=== PATIENT | male | born 1995 | race Caucasian/White ===

== ENCOUNTER 2019-08-14 13:46 | Inpatient (IN) | payer OTHER ==
[~2019-08-14] VITALS: Ht 170.2 cm; Wt 69.9 kg
[2019-08-14] MEDS ORDERED: MORPHINE SULFATE 4 MG/ML CPJ (NOT FOR IM USE) IV STA (14:32)
[2019-08-14] MEDS ORDERED: ONDANSETRON HCL 4MG/2ML INJ IV STA (14:32)
[2019-08-14] MEDS ORDERED: SODIUM CHLORIDE 0.9% 1000ML BAG (SEPSIS BOLUS) IV ONE (14:45)
[2019-08-14] MEDS ORDERED: PIPERACILLIN/TAZ 3.375G PREMIX 50 ML IV ONE (14:45)
[2019-08-14 16:04] LABS: CHLORIDE 105 mEq/L (98-107); PROTHROMBIN TIME 11.3 sec (9.6-11.0)
[2019-08-14 16:09] LABS: BASOPHILS % 0.8 % (0.0-2.0); C REACTIVE PROTEIN QUANT 2.5 mg/L (0.0-3.0); EOSINOPHILS % 1.6 % (0.0-5.0); HEMATOCRIT. 40.5 % (42.0-52.0); HEMOGLOBIN. 14.2 g/dL (14.0-18.0); LYMPHOCYTES % 21.9 % (20.0-50.0); MEAN CORPUSCULAR HEMOGLOBIN 30.1 pg (28.0-32.0); MEAN PLATELET VOLUME 7.5 fl (7.4-10.4); MONOCYTES % 6.7 % (2.0-8.0); PLATELET 245 x1000/uL (130-400); RED BLOOD CELL COUNT 4.72 mill/uL (4.7-6.1); RED CELL DISTRIBUTION WIDTH 13.5 % (11.6-14.6)
[2019-08-14] MEDS ORDERED: ONDANSETRON HCL 4MG/2ML INJ IV PRN (18:45)
[2019-08-14] MEDS ORDERED: ZOLPIDEM TARTRATE 5MG TABLET PO PRN (18:45)
[2019-08-14] MEDS ORDERED: ACETAMINOPHEN 325MG TABLET PO PRN (18:45)
[2019-08-14 20:00] VITALS: BP 128/54
[2019-08-15] VITALS: BP 112/40
[2019-08-15 04:00] VITALS: BP 121/73
[2019-08-15 04:43] LABS: CLARITY URINE CLEAR (CLEAR); COLOR URINE YELLOW (YELLOW); KETONES URINE NEGATIVE (NEGATIVE); LEUKOCYTE ESTERASE URINE NEGATIVE (NEGATIVE); NITRITE URINE NEGATIVE (NEGATIVE); OCCULT BLOOD URINE NEGATIVE (NEGATIVE); PROTEIN URINE NEGATIVE (NEGATIVE); SPECIFIC GRAVITY URINE 1.011 (1.005-1.030); UROBILINOGEN URINE 0.2 E.U./dL (0.2-1.0)
[2019-08-15 05:09] LABS: *AMPHETAMINES SCREEN URINE NEGATIVE (NEGATIVE); *BARBITURATES SCREEN URINE NEGATIVE (NEGATIVE); *BENZODIAZEPINES SCREEN URINE NEGATIVE (NEGATIVE); *COCAINE SCREEN URINE NEGATIVE (NEGATIVE); METHADONE URINE SCREEN NEGATIVE (NEGATIVE); OPIATES URINE SCREEN PRESUMTIVE POSITIVE (NEGATIVE); PHENCYCLIDINE URINE SCREEN NEGATIVE (NEGATIVE)
[2019-08-15 05:10] LABS: CANNABINOID URINE SCREEN NEGATIVE (NEGATIVE)
[2019-08-15 08:00] VITALS: BP 127/78
[2019-08-15] MEDS: DOCUSATE SODIUM 100MG CAPSULE PO SCH (08:22)
[2019-08-15] MEDS ORDERED: LIDOCAINE HCL 1% 20ML VIAL (Pyxis) INJ ONE (08:52)
[2019-08-15] MEDS ORDERED: SODIUM BICARBONATE 4% (2.4MEQ) 5ML VIAL IV ONE (08:52)
[2019-08-15 12:00] VITALS: BP 122/81
[2019-08-15 16:00] VITALS: BP 129/84
[2019-08-15 20:00] VITALS: BP 115/53
[2019-08-15] MEDS: CHLORHEXIDINE GLUCONATE 4% EXTERNAL USE TOP SCH (20:58)
[2019-08-16] VITALS: BP 114/50
[2019-08-16 04:00] VITALS: BP 152/80
[2019-08-16] MEDS: CHLORHEXIDINE GLUCONATE 4% EXTERNAL USE TOP SCH (05:03)
[2019-08-16] MEDS: DOCUSATE SODIUM 100MG CAPSULE PO SCH ×2 (09:05→16:40)
[2019-08-16] MEDS ORDERED: EPINEPHRINE 1:1000 1 MG/ML AMP ONE (10:43)
[2019-08-16] MEDS ORDERED: MORPHINE SULFATE/PF 1MG/ML 10ML AMP ONE (10:43)
[2019-08-16] MEDS ORDERED: BUPIVACAINE/EPINEPH/PF 0.25%/0.0005 10ML ONE ×2 (10:44→13:45)
[2019-08-16] MEDS ORDERED: BACITRACIN 50,000 UNITS/VIAL ONE (10:44)
[2019-08-16] MEDS ORDERED: NEOSTIGMINE METHYLSULFATE 1MG/ML 10 ML VIAL ONE (12:36)
[2019-08-16] MEDS ORDERED: FENTANYL CITRATE/PF 50MCG/ML 2ML VIAL ONE (12:36)
[2019-08-16] MEDS ORDERED: ROCURONIUM BROMIDE 10MG/ML VIAL 5ML IV ONE (12:36)
[2019-08-16] MEDS ORDERED: GLYCOPYRROLATE 0.2 MG/ML 2ML VIAL ONE (12:37)
[2019-08-16] MEDS ORDERED: MIDAZOLAM HCL 2 MG/2 ML VIAL ONE (12:37)
[2019-08-16] MEDS ORDERED: PROPOFOL 200MG/20ML VIAL IV ONE (12:37)
[2019-08-16] MEDS ORDERED: MORPHINE SULFATE 2 MG/ML CPJ (NOT FOR IM USE) IV PRN (12:45)
[2019-08-16] MEDS ORDERED: ACETAMINOPHEN 325MG TABLET PO PRN (12:45)
[2019-08-16] MEDS ORDERED: MAGNESIUM HYDROXIDE 400MG/5ML 30ML UDC PO PRN (12:45)
[2019-08-16] MEDS ORDERED: MORPHINE SULFATE 4 MG/ML CPJ (NOT FOR IM USE) IV PRN (12:45)
[2019-08-16] MEDS ORDERED: HYDROCODONE/ACETAMINOPHEN 10/325MG TABLET PO PRN ×2 (12:45)
[2019-08-16] MEDS ORDERED: DEXAMETHASONE 4MG/ML 1ML VIAL ONE (12:48)
[2019-08-16] MEDS ORDERED: ONDANSETRON HCL 4MG/2ML INJ ONE (12:53)
[2019-08-16] MEDS ORDERED: ONDANSETRON HCL 4MG/2ML INJ IV PRN (13:30)
[2019-08-16] MEDS ORDERED: LABETALOL 5MG/ML SYR 20 MG/4 ML SYRINGE IV PRN (13:30)
[2019-08-16] MEDS ORDERED: MEPERIDINE HCL/PF 25MG/ML CPJ IV PRN (13:30)
[2019-08-16] MEDS ORDERED: HYDROMORPHONE HCL/PF 2MG/ML CPJ IV PRN (13:30)
[2019-08-16 16:00] VITALS: BP 139/71
[2019-08-16] MEDS: CELECOXIB 200MG CAPSULE PO SCH (16:40)
[2019-08-16] MEDS: CEFAZOLIN 2,000 MG in DEXT 5% WATER 100 ML IV SCH (16:40)
[2019-08-16 20:00] VITALS: BP 114/65
[2019-08-16] MEDS ORDERED: ZOLPIDEM TARTRATE 5MG TABLET PO PRN (21:00)
[2019-08-17] VITALS: BP 115/71
[2019-08-17] MEDS: CEFAZOLIN 2,000 MG in DEXT 5% WATER 100 ML IV SCH (00:25)
[2019-08-17 04:00] VITALS: BP 110/69
[2019-08-17 08:00] VITALS: BP 116/58
[2019-08-17] MEDS: CELECOXIB 200MG CAPSULE PO SCH (08:35)
[2019-08-17] MEDS: DOCUSATE SODIUM 100MG CAPSULE PO SCH (08:36)
[2019-08-17 10:57] VITALS: BP 116/58
== END 2019-08-17 12:26 | disposition home or self-care (01) | DRG 486 ==
LOC: ER 13:46 → EDBEDREQ 15:57 → ENRESERV 17:03 → 6EST 17:30
PROVIDERS: ADMIT Internal Medicine; ATTEND Internal Medicine
PROC: 0S9D4ZZ Drainage of Left Knee Joint, Percutaneous Endoscopic Approach (ICD-10-PCS; principal; 2019-08-15)
PROC: 0SBD4ZZ Excision of Left Knee Joint, Percutaneous Endoscopic Approach (ICD-10-PCS; 2019-08-15)
DX: M00.062 Staphylococcal arthritis, left knee (principal); S82.142A Displaced bicondylar fracture of left tibia, initial encounter for closed fracture; M25.062 Hemarthrosis, left knee; M00.9 Pyogenic arthritis, unspecified; S82.839A Other fracture of upper and lower end of unspecified fibula, initial encounter for closed fracture; M65.9 Synovitis and tenosynovitis, unspecified; Z91.19 Patient's noncompliance with other medical treatment and regimen
CPT/HCPCS: 20610; 20611; 36415; 71045; 73552; 73562; 73590; 73721; 80053; 80305; 81003; 83605; 84145; 85025; 85651; 86140; 87070; 87075; 88304; 88311; 89060; 93005; 93971; 97116; 97162; J0171; J0690; J1100; J1170; J2250; J2270; J2274; J2405; J2543; J2704; J2710; J3010; J3490; J7030; J7060; L1830